=== PATIENT | female | born 1995 | race Caucasian/White ===

== ENCOUNTER 2016-08-17 23:51 | Emergency (ER) | payer OTHER ==
[~2016-08-17] VITALS: Ht 165.1 cm; Wt 50.0 kg
[~2016-08-17 23:51] MED LIST: ALBU2.5V13 IH; FERR-43 PO; OMEP20CA4; PREN-88 PO
[2016-08-18 02:05] LABS: CHLORIDE 104 mEq/L (98-107)
[2016-08-18 02:12] LABS: BASOPHILS % 0.2 % (0.0-2.0); EOSINOPHILS % 2.7 % (0.0-5.0); HEMATOCRIT. 34.3 % (36.0-48.0); HEMOGLOBIN. 11.9 g/dL (12.0-16.0); LYMPHOCYTES % 40.8 % (20.0-50.0); MEAN CORPUSCULAR HEMOGLOBIN 32.3 pg (28.0-32.0); MEAN CORPUSCULAR VOLUME 92.7 fL (81.0-99.0); MEAN PLATELET VOLUME 9.6 fl (7.4-10.4); MONOCYTES % 6.5 % (2.0-8.0); NEUTROPHILS % 49.8 % (40.0-76.0); PLATELET 156 x1000/uL (130-400); RED CELL DISTRIBUTION WIDTH 13.6 % (11.6-14.6)
[2016-08-18 02:13] LABS: CARBON DIOXIDE 29 mEq/L (21-32)
[2016-08-18 02:14] LABS: INR 1.1; PROTHROMBIN TIME 11.9 sec
[2016-08-18 02:27] LABS: CLARITY URINE CLEAR (CLEAR); COLOR URINE YELLOW (YELLOW); GLUCOSE URINE NEGATIVE (NEGATIVE); KETONES URINE TRACE (NEGATIVE); LEUKOCYTE ESTERASE URINE 1+ (NEGATIVE); NITRITE URINE NEGATIVE (NEGATIVE); OCCULT BLOOD URINE 1+ (NEGATIVE); PROTEIN URINE NEGATIVE (NEGATIVE); SPECIFIC GRAVITY URINE 1.027 (1.005-1.030)
[2016-08-18 02:40] LABS: *AMPHETAMINES SCREEN URINE NEGATIVE (NEGATIVE); *BARBITURATES SCREEN URINE NEGATIVE (NEGATIVE); *BENZODIAZEPINES SCREEN URINE NEGATIVE (NEGATIVE); *COCAINE SCREEN URINE NEGATIVE (NEGATIVE); CANNABINOID URINE SCREEN NEGATIVE (NEGATIVE); METHADONE URINE SCREEN NEGATIVE (NEGATIVE); OPIATES URINE SCREEN NEGATIVE (NEGATIVE); PHENCYCLIDINE URINE SCREEN NEGATIVE (NEGATIVE)
[2016-08-18] MEDS ORDERED: LIDOCAINE HCL 1% 20ML VIAL (Pyxis) INJ MC ONE (03:45)
[2016-08-18] MEDS ORDERED: ACETAMINOPHEN 325MG TABLET PO ONE (03:45)
[2016-08-18] MEDS ORDERED: CEFTRIAXONE SODIUM 1 G/VIAL IM ONE (03:45)
[2016-08-18 04:33] VITALS: BP 95/54
== END 2016-08-18 04:41 | disposition home or self-care (01) ==
LOC: ER 23:53
DX: R10.9 Unspecified abdominal pain (principal); R30.0 Dysuria; R35.0 Frequency of micturition; J45.909 Unspecified asthma, uncomplicated; Z90.49 Acquired absence of other specified parts of digestive tract; Z88.0 Allergy status to penicillin; Z88.8 Allergy status to other drugs, medicaments and biological substances
CPT/HCPCS: 36415; 80053; 80305; 81001; 81025; 83690; 85025; 85610; 96372; 99284; J0696; J3490

== ENCOUNTER 2016-10-28 17:19 | Emergency (ER) | payer OTHER ==
[~2016-10-28] VITALS: Ht 165.1 cm; Wt 51.0 kg
[2016-10-28] MEDS ORDERED: IBUPROFEN 600MG TABLET PO ONE (20:30)
[2016-10-28 21:12] VITALS: BP 97/54
[2016-10-28 21:35] LABS: BASOPHILS % 0.2 % (0.0-2.0); EOSINOPHILS % 1.6 % (0.0-5.0); HEMATOCRIT. 35.3 % (36.0-48.0); LYMPHOCYTES % 21.5 % (20.0-50.0); MEAN CORPUSCULAR HEMOGLOBIN 31.5 pg (28.0-32.0); MEAN CORPUSCULAR VOLUME 92.5 fL (81.0-99.0); MEAN PLATELET VOLUME 9.6 fl (7.4-10.4); MONOCYTES % 5.6 % (2.0-8.0); NEUTROPHILS % 71.1 % (40.0-76.0); PLATELET 157 x1000/uL (130-400); RED BLOOD CELL COUNT 3.81 mill/uL (4.2-5.4); RED CELL DISTRIBUTION WIDTH 12.9 % (11.6-14.6)
[2016-10-28 21:38] LABS: CHLORIDE 104 mEq/L (98-107)
[2016-10-28 21:45] LABS: CARBON DIOXIDE 26 mEq/L (21-32)
[2016-10-28 21:50] LABS: CLARITY URINE CLEAR (CLEAR); COLOR URINE YELLOW (YELLOW); GLUCOSE URINE NEGATIVE (NEGATIVE); KETONES URINE NEGATIVE (NEGATIVE); LEUKOCYTE ESTERASE URINE NEGATIVE (NEGATIVE); NITRITE URINE NEGATIVE (NEGATIVE); OCCULT BLOOD URINE NEGATIVE (NEGATIVE); PROTEIN URINE NEGATIVE (NEGATIVE); SPECIFIC GRAVITY URINE 1.027 (1.005-1.030)
== END 2016-10-28 22:19 | disposition home or self-care (01) ==
LOC: ER 18:10
DX: O26.891 Other specified pregnancy related conditions, first trimester (principal); R10.9 Unspecified abdominal pain; J45.909 Unspecified asthma, uncomplicated; Z88.0 Allergy status to penicillin; Z88.6 Allergy status to analgesic agent; Z3A.01 Less than 8 weeks gestation of pregnancy
CPT/HCPCS: 36415; 80048; 81003; 85025; 99284

== ENCOUNTER 2018-12-08 23:23 | Emergency (ER) | payer MEDICAID, OTHER ==
[~2018-12-08] VITALS: Ht 165.1 cm; Wt 50.0 kg
[2018-12-09] MEDS ORDERED: IPRATROPIUM BROMIDE (0.02%) 0.5MG/2.5ML NEB HHN STA (00:18)
[2018-12-09] MEDS ORDERED: ALBUTEROL (0.083%) 2.5MG/3ML NEB HHN STA (00:18)
[2018-12-09] MEDS ORDERED: PREDNISONE 20MG TABLET PO ONE (01:45)
[2018-12-09 01:49] VITALS: BP 118/75
== END 2018-12-09 01:50 | disposition home or self-care (01) ==
LOC: ER 23:43
DX: J45.901 Unspecified asthma with (acute) exacerbation (principal); J06.9 Acute upper respiratory infection, unspecified
CPT/HCPCS: 71045; 94640; 99283; J7611; Z7610

== ENCOUNTER 2019-01-21 10:44 | Emergency (ER) | payer SELFPAY ==
[~2019-01-21] VITALS: Ht 165.1 cm; Wt 49.0 kg
[2019-01-21 10:48] VITALS: BP 112/78
== END 2019-01-21 13:43 | disposition left against medical advice (07) ==
LOC: ER 10:44
DX: R06.02 Shortness of breath (principal); Z53.21 Procedure and treatment not carried out due to patient leaving prior to being seen by health care provider

== ENCOUNTER 2021-02-16 15:50 | Emergency (ER) | payer OTHER ==
[~2021-02-16] VITALS: Ht 165.1 cm; Wt 49.9 kg
[2021-02-16] MEDS ORDERED: ALBU6.7H15 INH (17:25)
[2021-02-16] MEDS ORDERED: ONDA4TAB11 PO (17:25)
[2021-02-16] MEDS ORDERED: ONDANSETRON 4MG ODT PO ONE (18:00)
[2021-02-16 18:49] VITALS: BP 110/65
== END 2021-02-16 18:51 | disposition home or self-care (01) ==
LOC: ER 15:50
DX: Z20.822 Contact with and (suspected) exposure to COVID-19 (principal); R19.7 Diarrhea, unspecified; J45.909 Unspecified asthma, uncomplicated; Z88.0 Allergy status to penicillin; Z88.6 Allergy status to analgesic agent; Z98.890 Other specified postprocedural states
CPT/HCPCS: 87426; 99284; Q0162

== ENCOUNTER 2022-03-19 08:01 | Emergency (ER) | payer OTHER ==
[~2022-03-19] VITALS: Ht 162.6 cm; Wt 51.0 kg
[~2022-03-19 08:01] MED LIST changes: +ALBU6.7H15 INH; +ONDA4TAB11 PO
[2022-03-19] MEDS ORDERED: ACETAMINOPHEN 325MG TABLET PO ONE (08:30)
[2022-03-19] MEDS ORDERED: ACET-2708 MT (09:42)
[2022-03-19 09:50] VITALS: BP 128/77
== END 2022-03-19 10:11 | disposition home or self-care (01) ==
LOC: ER 08:01
DX: S60.221A Contusion of right hand, initial encounter (principal); S63.501A Unspecified sprain of right wrist, initial encounter; V49.49XA Driver injured in collision with other motor vehicles in traffic accident, initial encounter; Y93.89 Activity, other specified; Y92.89 Other specified places as the place of occurrence of the external cause; Y99.8 Other external cause status; J45.909 Unspecified asthma, uncomplicated; F12.10 Cannabis abuse, uncomplicated; Z79.899 Other long term (current) drug therapy; Z88.0 Allergy status to penicillin; Z90.49 Acquired absence of other specified parts of digestive tract
CPT/HCPCS: 73110; 73130; 99284

== ENCOUNTER 2024-04-21 15:13 | Emergency (ER) | payer MEDICAID, OTHER ==
[~2024-04-21] VITALS: Ht 165.1 cm; Wt 53.2 kg
[~2024-04-21 15:13] MED LIST changes: +ACET-2708 MT; +ONDA-239 PO; -ONDA4TAB11 PO
[2024-04-21 15:36] VITALS: O2SAT 99
[2024-04-21] MEDS ORDERED: ACET-2708 MT (18:12)
[2024-04-21] MEDS: ACETAMINOPHEN 325MG TABLET PO ONE (18:34)
[2024-04-21 18:36] VITALS: BP 120/73; PULSE 84; RESP 18; TEMP 36.8; O2SAT 98
== END 2024-04-21 18:39 | disposition home or self-care (01) ==
LOC: ER 15:13
DX: M25.532 Pain in left wrist (principal); J45.909 Unspecified asthma, uncomplicated; F12.90 Cannabis use, unspecified, uncomplicated; Z79.899 Other long term (current) drug therapy; Z90.49 Acquired absence of other specified parts of digestive tract; Z88.0 Allergy status to penicillin; Z88.6 Allergy status to analgesic agent
CPT/HCPCS: 29125; 73120; 99283

== ENCOUNTER 2024-11-26 23:05 | Emergency (ER) | payer MEDICAID ==
[~2024-11-26] VITALS: Ht 165.1 cm; Wt 57.0 kg
[2024-11-26 23:32] VITALS: O2SAT 98
[2024-11-27 01:21] VITALS: BP 105/65; PULSE 71; RESP 18; TEMP 36.6; O2SAT 98
[2024-11-27 06:37] LABS: INFLUENZA TYPE A Presumptive Negative (Pres. Neg.)
[2024-11-27 06:39] LABS: INFLUENZA TYPE B Presumptive Negative (Pres. Neg.)
[2024-11-27 06:42] LABS: RESPIRATORY SYNCYTIAL VIRUS Not Detected (Not Detectd)
== END 2024-11-27 01:48 | disposition home or self-care (01) ==
LOC: ER 23:05
DX: B34.9 Viral infection, unspecified (principal); R09.81 Nasal congestion; J45.909 Unspecified asthma, uncomplicated; Z88.0 Allergy status to penicillin; Z88.6 Allergy status to analgesic agent; Z79.899 Other long term (current) drug therapy; Z20.822 Contact with and (suspected) exposure to COVID-19
CPT/HCPCS: 71045; 87420; 87426; 87804; 99284